=== PATIENT | male | born 1975 | race Two or more races ===

== ENCOUNTER 2021-05-21 14:47 | Emergency (ER) | payer SELFPAY ==
[~2021-05-21] VITALS: Ht 160 cm; Wt 75.4 kg
--- NOTE | 2021-05-21 15:27 | PHYS DOC ---
General Adult EDM: Chief Complaint: SHOUDLER HPI: HPI: Patient is a 46 year old male who presents with 4 day history of left shoulder pain. He rates his pain 8/10 nonradiating and worse since onset. Patient states he was at work lifting ___ when his pain began. He saw his chiropracter, who advised that he may have a rotator cuff injury. Patient took tylenol yesterday without significant relief. Patient denies trauma, paresthesias, swelling and erythema. Interview conducted in Japanese. Review of Systems: Review of Systems: Constitutional: Denies fever or chills. Respiratory: Denies cough or shortness of breath. Cardiovascular: Denies chest pain or edema. Musculoskeletal: See HPI Integument: See HPI Neurologic: See HPI Heart Score: C/O Chest Pain: No Physical Exam: PE: Constitutional: Well developed, well nourished, no acute distress, non-toxic appearance. Neck: Normal range of motion, no tenderness, supple, no stridor. Cardiovascular: Heart rate regular rhythm, no murmur. Lungs & Thorax: Bilateral breath sounds clear to auscultation. Skin: Warm, dry, no erythema, no rash no abrasion, no laceration. Back: No tenderness, no CVA tenderness. Extremities: No tenderness, no cyanosis, no clubbing, passive and active ROM intact, no edema. Neurologic: Alert and oriented x4, motor function grossly intact, sensory function grossly intact, no focal deficits noted. Current Patient Data: Vital Signs: Vital Signs Date Time Temp Pulse Resp B/P (MAP) Pulse Ox O2 Delivery O2 Flow Rate FiO2 05/21/21 15:30 97.7 86 18 161/99 (119) 99 Room Air 97.7 Course & Med Decision Making: Course & Med Decision Making Pertinent Labs and Imaging studies reviewed. (See chart for details) Advised the patient that x-ray images would not likely provide valuable information, and that it is more likely to determine what if any injury the patient has with MRI. Patient denies renal dysfunction, provided IM ketorolac in the department for pain control. Patient is agreeable to outpatient follow-up with orthopedics for further evaluation and management. He is instructed to take [id number] NSAID moving forward. Patient understands and is agreeable to discharge plan. Jackie Disclaimer: Jackie Disclaimer: This electronic medical record was generated, in whole or in part, using a voice recognition dictation system. Departure Departure Impression: Primary Impression: Acute pain of left shoulder Disposition: HOME / SELF CARE / HOMELESS Condition: STABLE Referrals: MYESHA GUALLPA Jr. DO Patient Instructions: Shoulder Pain, Opir-qa-Cnym Additional Instructions: Llama a Dr. Guallpa para hacer rashid shameka para examinar mohan hombro. No tenemos los examenes que necesita para evaluar mohan dolor. Regrese al departamento si mohan dolor empeora. Edyd a mohan doctor de famila para la presion, tambien. ARLEN ZAMORA May 21, 2021 15:27
[2021-05-21 15:30] VITALS: BP 161/99
[2021-05-21] MEDS ORDERED: KETOROLAC 60 MG/2 ML VIAL. IM ONE (16:00)
== END 2021-05-21 16:04 | disposition home or self-care (01) ==
LOC: ER 14:47
DX: M25.512 Pain in left shoulder (principal)
CPT/HCPCS: 96372; 99283; J1885